=== PATIENT | female | born 1965 | race Caucasian/White ===

== ENCOUNTER 2018-04-06 14:08 | Emergency (ER) | payer OTHER ==
[~2018-04-06] VITALS: Ht 165.1 cm; Wt 72.6 kg
[2018-04-06] MEDS ORDERED: CELE100C PO (14:18)
--- NOTE | 2018-04-06 14:27 | NUR ---
Dr Montes De Oca at the bedside for MSE.
--- NOTE | 2018-04-06 14:33 | NUR ---
Patient discharged to home in stable conditon. Written and verbal after care instructions given. Patient verbalizes understanding of instructions.
[2018-04-06 14:39] VITALS: BP 117/90
== END 2018-04-06 14:45 | disposition home or self-care (01) ==
LOC: ER 14:12
DX: S00.83XA Contusion of other part of head, initial encounter (principal); S13.4XXA Sprain of ligaments of cervical spine, initial encounter; Z79.899 Other long term (current) drug therapy; V89.2XXA Person injured in unspecified motor-vehicle accident, traffic, initial encounter; Y93.89 Activity, other specified; Y92.410 Unspecified street and highway as the place of occurrence of the external cause; Y99.8 Other external cause status
CPT/HCPCS: A4663